=== PATIENT | male | born 1990 | race Caucasian/White ===

== ENCOUNTER 2023-01-25 08:57 | Emergency (ER) | payer OTHER ==
[~2023-01-25] VITALS: Ht 180.3 cm; Wt 159.1 kg
[2023-01-25 09:35] VITALS: TEMP 98.4
[2023-01-25 09:46] LABS: COLLECTION METHOD CLEAN CATCH
[2023-01-25 09:53] LABS: MUCOUS Present (NOT PRESENT); SQUAMOUS EPITHELIAL 0-2 /hpf (0-10); URINE APPEARANCE Clear (CLEAR/HAZY); URINE BACTERIA None Seen /hpf (NONE SEEN); URINE COLOR Yellow (YELLOW); URINE GLUCOSE Negative (NEGATIVE); URINE KETONE Negative (NEGATIVE); URINE PROTEIN(semi-quant) Negative (NEGATIVE); URINE RBC 0-2 /hpf (0-2)
[2023-01-25 09:54] LABS: URINE BLOOD Negative (NEGATIVE); URINE NITRATE Negative (NEGATIVE)
[2023-01-25 10:28] VITALS: BP 141/97; PULSE 90
== END 2023-01-25 10:34 | disposition home or self-care (01) ==
LOC: COL.ER 08:57
PROVIDERS: Emergency Medicine
DX: R30.9 Painful micturition, unspecified (principal); R31.9 Hematuria, unspecified